=== PATIENT | female | born 1975 | race Caucasian/White ===

== ENCOUNTER 2017-09-03 04:40 | Inpatient (IN) | END 2017-09-03 21:15 | disposition left against medical advice (07) | DRG 392 ==

== ENCOUNTER 2018-11-19 02:14 | Inpatient (IN) | payer OTHER ==
[~2018-11-19] VITALS: Ht 162.6 cm; Wt 69.8 kg
[~2018-11-19 02:14] MED LIST: SERT50TA PO; TOPI25CA PO
[2018-11-19 03:31] VITALS: Ht 162.6 cm; Wt 69.8 kg
[2018-11-19 03:43] VITALS: BP 136/81; PULSE 50; RESP 20
[2018-11-19] MEDS ORDERED: ONDANSETRON 4 MG INJ IV PRN (04:30)
[2018-11-19] MEDS ORDERED: ACETAMINOPHEN 325 MG TAB PO PRN (04:30)
[2018-11-19] MEDS ORDERED: NACL 0.9% 3 ML SYG IV SCH (04:30)
[2018-11-19] MEDS ORDERED: HYDROCODONE/APAP (5/325) TAB PO PRN (04:30)
[2018-11-19] MEDS: SOD CHLORIDE 0.9% 1,000 ML IV SCH ×4 (05:09→19:53)
[2018-11-19] MEDS: morphine 2 MG INJ IV PRN ×4 (05:16→20:00)
--- NOTE | 2018-11-19 06:46 | HP ---
Date/Time of Note Date/Time of Note DATE: 11/19/18 TIME: 06:39 Assessment/Plan VTE Prophylaxis Pharmacological prophylaxis: heparin Lines/Catheters IV Catheter Type (from Nrs): Peripheral IV Assessment/Plan Assessment/Plan 43-year-old female with ureterolithiasis status post left-sided JJ stent placement about a month ago presents with bilateral flank pain and hematuria with an outside CT showing stable appearance of left-sided double J stent con taining a ureteral stone present at S1, stable however since the previous exam from 11/13/2018, there is significantly increased periureteral and perinephric stranding with neck, now with moderate hydronephrosis. Also stable appearance of the right 3 mm renal stone and likely a cyst. Postsurgical change within the small bowel loops, with focal ileus, stable. Patient was transferred here for insurance reason. PLAN -IV fluid -IV antibiotic -Flomax -Strain urine -Pain management -Urology consult -UA and urine culture Result Diagram: 11/19/18 0545 Results 24hrs Laboratory Tests Test 11/19/18 05:45 White Blood Count 7.5 # Red Blood Count 3.99 L Hemoglobin 12.2 Hematocrit 38.6 Mean Corpuscular Volume 96.7 Mean Corpuscular Hemoglobin 30.6 Mean Corpuscular Hemoglobin Concent 31.6 L Red Cell Distribution Width 13.1 Platelet Count 260 Mean Platelet Volume 9.8 Immature Granulocytes % 0.300 Neutrophils % 64.1 Lymphocytes % 24.7 Monocytes % 8.5 Eosinophils % 2.0 Basophils % 0.4 Nucleated Red Blood Cells % 0.0 Immature Granulocytes # 0.020 Neutrophils # 4.8 Lymphocytes # 1.9 Monocytes # 0.6 Eosinophils # 0.2 Basophils # 0.0 Nucleated Red Blood Cells # 0.0 HPI/ROS Admit Date/Time Admit Date/Time Nov 19, 2018 at 02:50 Hx of Present Illness Patient is a 43-year-old female who is a 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 She also reported dysuria and hematuria. She said a month ago she had a ureteral stent placed on the left side, but the stone was not removed. She said the stent is going to be removed at a later time when the infection resolves. She continues to have pain and also gross hematuria and as such she went to an outside hospital and then she was transferred here for insurance reason. CT at outside facility shows stable appearance of left-sided double J stent containing a ureteral stone present at S1, stable however since the previous exam from 11/13/2018, there is significantly increased periureteral and perinephric stranding with neck, now with moderate hydronephrosis. Also stable appearance of the right 3 mm renal stone and likely a cyst. Postsurgical change within the small bowel loops, with focal ileus, stable. UA consistent with UTI. No fever, WBC WNL and no renal insufficiency. She was transferred to [facility] for insurance reasons. Of note, patient was admitted here in 2018 for abdominal pain. At that time abdominal MRI showed mild right hydronephrosis and moderate right perinephric edema, may be due to an obstructing lesion such as a calculus or may also be due to pyelonephritis. She was also evaluated by GI for a mild CBD dilation, but no invasive procedure like ERCP was done. PMH/Family/Social Past Medical History Medical History: other (See HPI) Medications Current Medications Sodium Chloride 1,000 ml @ 125 mls/hr Q8H IV Last administered on 11/19/18at 05:09; Admin Dose 125 MLS/HR; Start 11/19/18 at 04:27 IV Flush (NS 3 ml) 3 ml PER PROTOCOL IV ; Start 11/19/18 at 04:30 Ondansetron HCl (Zofran Inj) 4 mg Q6H PRN IV NAUSEA/VOMITING; Start 11/19/18 at 04:30 Acetaminophen (Tylenol Tab) 650 mg Q6H PRN PO .PAIN 1-3 OR TEMP; Start 11/19/18 at 04:30 Acetaminophen/ Hydrocodone Bitart ([place] (5/325)) 1 tab Q6H PRN PO .MOD PAIN 4- 6; Start 11/19/18 at 04:30 Acetaminophen/ Hydrocodone Bitart ([place] (5/325)) 2 tab Q6H PRN PO .SEVERE PAIN 7-10; Start 11/19/18 at 04:30 Morphine Sulfate (morphine) 4 mg Q4H PRN IV .SEVERE PAIN 7-10 Last administered on 11/19/18at 05:16; Admin Dose 4 MG; Start 7/17/19 at 04:30 Coded Allergies: Penicillins (Verified Allergy, Mild, HIVES, 10/21/13) Past Surgical History Past Surgical Hx: other (See HPI) Family History Significant Family History: no pertinent family hx Social History Alcohol Use: none Smoking Status: Current some day smoker Drug Use: none Exam/Review of Systems Vital Signs Vitals Vital Signs Date Temp Pulse Resp B/P (MAP) Pulse Ox O2 O2 Flow FiO2 Time Delivery Rate 11/19/18 97.8 50 20 136/81 100 03:43 (99) Exam Constitutional: other (Sleepy, but arousable. Answering question appropriately. Able speak in full sentences) Head: normocephalic, atraumatic Eyes: PERRL Respiratory: clear to auscultation, normal air movement Cardiovascular: regular rate and rhythm Gastrointestinal: soft, tender Extremities: normal pulses CHARLES JOE MD Nov 19, 2018 06:46
[2018-11-19] MEDS ORDERED: TAMSULOSIN (SR) 0.4 MG CAP PO ONE (07:00)
[2018-11-19 07:49] VITALS: BP 112/59; PULSE 65; RESP 16
[2018-11-19] MEDS: CEFTRIAXONE 1 GM/50 ML (PMX) 50 ML IVPB SCH (07:50)
[2018-11-19] MEDS: HYDROCODONE/APAP (5/325) TAB PO PRN ×3 (07:58→22:42)
--- NOTE | 2018-11-19 12:13 | PN ---
Date/Time of Note Date/Time of Note DATE: 11/19/18 TIME: 12:08 Assessment/Plan VTE Prophylaxis Risk score (from Ns)>0 risk: 2 SCD applied (from Ns): Yes Pharmacological prophylaxis: NA/contraindicated Pharm contraindication: low risk/ambulating Lines/Catheters [facility] Type (from [facility]): Peripheral IV Assessment/Plan Hospital Course Assessment and plan 1. Urolithiasis status post left J stent placement. Patient did report that she had. There is a stent placed roughly a month ago. Imaging done at outside hospital did show left-sided JJ stent containing ureteral stone. Will get urologist consultation. Continue with analgesics. 2. UTI. Continue antibiotic regimen for now. Antipyretics as needed for fever. Follow-up on urine cultures. 3. Hematuria. Secondary to #1. Monitor H&H. Discussed POC with Dr. Castillo Result Diagram: 11/19/18 0545 11/19/18 0545 Results 24hrs Laboratory Tests Test 11/19/18 05:00 11/19/18 05:45 Urine Color YELLOW Urine Clarity CLOUDY A Urine pH 6.0 Urine Specific [place] 1.015 Urine Ketones NEGATIVE Urine Nitrite NEGATIVE Urine Bilirubin NEGATIVE Urine Urobilinogen NEGATIVE Urine Leukocyte Esterase 1+ H Urine Microscopic RBC > 182 H Urine Microscopic WBC 91 H Urine Squamous Epithelial Cells FEW Urine Bacteria FEW A Urine Mucus MODERATE Urine Hemoglobin 3+ H Urine Glucose NEGATIVE Urine Total Protein 2+ H White Blood Count 7.5 # Red Blood Count 3.99 L Hemoglobin 12.2 Hematocrit 38.6 Mean Corpuscular Volume 96.7 Mean Corpuscular Hemoglobin 30.6 Mean Corpuscular Hemoglobin Concent 31.6 L Red Cell Distribution Width 13.1 Platelet Count 260 Mean Platelet Volume 9.8 Immature Granulocytes % 0.300 Neutrophils % 64.1 Lymphocytes % 24.7 Monocytes % 8.5 Eosinophils % 2.0 Basophils % 0.4 Nucleated Red Blood Cells % 0.0 Immature Granulocytes # 0.020 Neutrophils # 4.8 Lymphocytes # 1.9 Monocytes # 0.6 Eosinophils # 0.2 Basophils # 0.0 Nucleated Red Blood Cells # 0.0 Sodium Level 143 Potassium Level 4.0 Chloride Level 106 Carbon Dioxide Level 31 Anion Gap 6 Blood Urea Nitrogen 15 Creatinine 0.71 Est Glomerular Filtrat Rate mL/min > 60 Glucose Level 105 Calcium Level 9.1 Phosphorus Level 3.1 Magnesium Level 1.7 Total Bilirubin 0.3 Direct Bilirubin 0.00 Indirect Bilirubin 0.3 Aspartate Amino Transf (AST/SGOT) 22 Alanine Aminotransferase (ALT/SGPT) 17 Alkaline Phosphatase 62 Total Protein 6.4 Albumin 3.6 Globulin 2.80 Albumin/Globulin Ratio 1.28 Subjective 24 Hr Interval Summary Free Text/Dictation patient still reports back pain. reports some hematuria Exam/Review of Systems Exam Vitals Vital Signs Date Temp Pulse Resp B/P (MAP) Pulse Ox O2 O2 Flow FiO2 Time Delivery Rate 11/19/18 97.5 65 16 112/59 96 07:49 (76) Constitutional: alert, oriented Head: normocephalic Neck: supple, non-tender Respiratory: clear to auscultation Cardiovascular: regular rate and rhythm, other (tender on back) Gastrointestinal: soft Musculoskeletal: nl extremities to inspection Neurological: nl mental status, nl speech Skin: nl turgor; No rash or lesions Results Results 24hrs Laboratory Tests Test 11/19/18 05:00 11/19/18 05:45 Urine Color YELLOW Urine Clarity CLOUDY A Urine pH 6.0 Urine Specific [place] 1.015 Urine Ketones NEGATIVE Urine Nitrite NEGATIVE Urine Bilirubin NEGATIVE Urine Urobilinogen NEGATIVE Urine Leukocyte Esterase 1+ H Urine Microscopic RBC > 182 H Urine Microscopic WBC 91 H Urine Squamous Epithelial Cells FEW Urine Bacteria FEW A Urine Mucus MODERATE Urine Hemoglobin 3+ H Urine Glucose NEGATIVE Urine Total Protein 2+ H White Blood Count 7.5 # Red Blood Count 3.99 L Hemoglobin 12.2 Hematocrit 38.6 Mean Corpuscular Volume 96.7 Mean Corpuscular Hemoglobin 30.6 Mean Corpuscular Hemoglobin Concent 31.6 L Red Cell Distribution Width 13.1 Platelet Count 260 Mean Platelet Volume 9.8 Immature Granulocytes % 0.300 Neutrophils % 64.1 Lymphocytes % 24.7 Monocytes % 8.5 Eosinophils % 2.0 Basophils % 0.4 Nucleated Red Blood Cells % 0.0 Immature Granulocytes # 0.020 Neutrophils # 4.8 Lymphocytes # 1.9 Monocytes # 0.6 Eosinophils # 0.2 Basophils # 0.0 Nucleated Red Blood Cells # 0.0 Sodium Level 143 Potassium Level 4.0 Chloride Level 106 Carbon Dioxide Level 31 Anion Gap 6 Blood Urea Nitrogen 15 Creatinine 0.71 Est Glomerular Filtrat Rate mL/min > 60 Glucose Level 105 Calcium Level 9.1 Phosphorus Level 3.1 Magnesium Level 1.7 Total Bilirubin 0.3 Direct Bilirubin 0.00 Indirect Bilirubin 0.3 Aspartate Amino Transf (AST/SGOT) 22 Alanine Aminotransferase (ALT/SGPT) 17 Alkaline Phosphatase 62 Total Protein 6.4 Albumin 3.6 Globulin 2.80 Albumin/Globulin Ratio 1.28 Medications Medication Current Medications Sodium Chloride 1,000 ml @ 125 mls/hr Q8H IV Last administered on 11/19/18at 05:09; Admin Dose 125 MLS/HR; Start 11/19/18 at 04:27 IV Flush (NS 3 ml) 3 ml PER PROTOCOL IV ; Start 11/19/18 at 04:30 Ondansetron HCl (Zofran Inj) 4 mg Q6H PRN IV NAUSEA/VOMITING; Start 11/19/18 at 04:30 Acetaminophen (Tylenol Tab) 650 mg Q6H PRN PO .PAIN 1-3 OR TEMP; Start 11/19/18 at 04:30 Acetaminophen/ Hydrocodone Bitart ([place] (5/325)) 1 tab Q6H PRN PO .MOD PAIN 4- 6; Start 11/19/18 at 04:30 Acetaminophen/ Hydrocodone Bitart ([place] (5/325)) 2 tab Q6H PRN PO .SEVERE PAIN 7-10 Last administered on 11/19/18at 07:58; Admin Dose 2 TAB; Start 11/19/18 at 04:30 Morphine Sulfate (morphine) 4 mg Q4H PRN IV .SEVERE PAIN 7-10 Last administered on 11/19/18at 10:35; Admin Dose 4 MG; Start 11/19/18 at 04:30 Ceftriaxone Sodium 50 ml @ 100 mls/hr Q24H IVPB Last administered on 11/19/18at 07:50; Admin Dose 100 MLS/HR; Start 11/19/18 at 07:00 MARY VANCE NP Nov 19, 2018 12:13
[2018-11-19 14:53] VITALS: BP 109/55; PULSE 82; RESP 16
--- NOTE | 2018-11-19 19:18 | CONS ---
Assessment/Plan Assessment/Plan Hospital Course (Demo Recall) 43-year-old female had left flank pain about 3 weeks earlier. She went to [facility]. She had a CT scan and that showed a stone in the left ureter. She had a a JJ stent put in and discharged home patient went again to [facility] and had another CT scan and that showed the stone still in the mid ureter over the sacral area. Patient was transferred to [facility] because of her insurance. Patient states that she has been treated for urinary tract infection. I looked at the CT scan and she does have a stone on the left side over the middle of the sacroiliac joint area. Impression: Left mid ureteral stone, status post insertion of left ureteral JJ stent about 3 weeks earlier. Plan: Cystoscopy,left ureteroscopy, laser lithotripsy, removal and replacement of left ureteral JJ stent. I did explain the procedure to her in detail Including the benefits risks and complications and these include and not limited to infection, bleeding, perforation of the ureter, failure to remove the stone in addition to the usual anesthetic risks. She understood and is agreeable to proceed Consultation Date/Type/Reason Admit Date/Time Nov 19, 2018 at 02:50 Date of Consultation: Nov 19, 2018 Type of Consult Urology Reason for Consultation Left mid ureteral stone Requesting Provider: CHARLES JOE MD Date/Time of Note DATE: 11/19/18 TIME: 19:04 Hx of Present Illness 43-year-old female had left flank pain about 3 weeks earlier. She went to [facility]. She had a CT scan and that showed a stone in the left ureter. She had a a JJ stent put in and discharged home patient went again to [facility] and had another CT scan and that showed the stone still in the mid ureter over the sacral area. Patient was transferred to [facility] because of her insurance. Patient states that she has been treated for urinary tract infection. Constitutional: no complaints Eyes: no complaints ENT: no complaints Respiratory: no complaints; No wheezing Cardiovascular: No chest pain Gastrointestinal: pain (Suprapubic); No nausea, No vomiting Genitourinary: flank pain (Left side), other (Patient has vaginal bleeding.) Musculoskeletal: no complaints Skin: no complaints Neurologic: no complaints Endocrine: no complaints Lymphatic: no complaints Past Medical History Medical History: no pertinent history, other (Depression) Home Meds Reported Medications Sertraline Hcl* (Zoloft*) 50 Mg Tablet, 50 MG PO DAILY 09/03/17 Topiramate* (Topamax*) 25 Mg Cap.sprink, 200 MG PO HS, CAP 09/03/17 Medications Current Medications Sodium Chloride 1,000 ml @ 125 mls/hr Q8H IV Last administered on 11/19/18at 13:39; Admin Dose 125 MLS/HR; Start 11/19/18 at 04:27 IV Flush (NS 3 ml) 3 ml PER PROTOCOL IV ; Start 11/19/18 at 04:30 Ondansetron HCl (Zofran Inj) 4 mg Q6H PRN IV NAUSEA/VOMITING; Start 11/19/18 at 04:30 Acetaminophen (Tylenol Tab) 650 mg Q6H PRN PO .PAIN 1-3 OR TEMP; Start 11/19/18 at 04:30 Acetaminophen/ Hydrocodone Bitart ([place] (5/325)) 1 tab Q6H PRN PO .MOD PAIN 4- 6; Start 11/19/18 at 04:30 Acetaminophen/ Hydrocodone Bitart ([place] (5/325)) 2 tab Q6H PRN PO .SEVERE PAIN 7-10 Last administered on 11/19/18at 16:25; Admin Dose 2 TAB; Start 11/19/18 at 04:30 Morphine Sulfate (morphine) 4 mg Q4H PRN IV .SEVERE PAIN 7-10 Last administered on 11/19/18at 14:48; Admin Dose 4 MG; Start 11/19/18 at 04:30 Ceftriaxone Sodium 50 ml @ 100 mls/hr Q24H IVPB Last administered on 11/19/18at 07:50; Admin Dose 100 MLS/HR; Start 11/19/18 at 07:00 Allergies: Coded Allergies: Penicillins (Verified Allergy, Mild, HIVES, 10/21/13) Past Surgical History Past Surgical Hx: appendectomy, other (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 At the same time she had an appendectomy and that was in 2009.) Social History Alcohol Use: none Smoking Status: Current some day smoker (She does smoke 3 to 5 cigarettes a day in addition to vaping) Drug Use: none Other Social History 5 para 3, 2 abortions and 3 normal deliveries Exam/Review of Systems Exam Vitals Vital Signs Date Temp Pulse Resp B/P (MAP) Pulse Ox O2 O2 Flow FiO2 Time Delivery Rate 11/19/18 98.2 82 16 109/55 93 14:53 (73) Constitutional: alert, oriented Psych: no complaints Head: normocephalic Eyes: nl conjunctiva ENMT: nl external ears & nose Neck: supple Respiratory: normal air movement; No wheezing Cardiovascular: No jugular venous distention (JVD) Gastrointestinal: soft Genitourinary - Female: CVA tenderness (Left side also tenderness in the suprapubic area. She does have heavy vaginal bleeding. She did have her menstrual periods a month ago and states that she has have vaginal bleeding since she had the JJ stent put in.) Musculoskeletal: nl extremities to inspection Extremities: No calf tenderness Neurological: nl mental status Skin: nl turgor, other (Tattoos on most of her body.) Results Result Diagram: 11/19/18 0545 11/19/18 0545 Results 24hrs Laboratory Tests Test 11/19/18 05:00 11/19/18 05:45 Urine Color YELLOW Urine Clarity CLOUDY A Urine pH 6.0 Urine Specific [place] 1.015 Urine Ketones NEGATIVE Urine Nitrite NEGATIVE Urine Bilirubin NEGATIVE Urine Urobilinogen NEGATIVE Urine Leukocyte Esterase 1+ H Urine Microscopic RBC > 182 H Urine Microscopic WBC 91 H Urine Squamous Epithelial Cells FEW Urine Bacteria FEW A Urine Mucus MODERATE Urine Hemoglobin 3+ H Urine Glucose NEGATIVE Urine Total Protein 2+ H White Blood Count 7.5 # Red Blood Count 3.99 L Hemoglobin 12.2 Hematocrit 38.6 Mean Corpuscular Volume 96.7 Mean Corpuscular Hemoglobin 30.6 Mean Corpuscular Hemoglobin Concent 31.6 L Red Cell Distribution Width 13.1 Platelet Count 260 Mean Platelet Volume 9.8 Immature Granulocytes % 0.300 Neutrophils % 64.1 Lymphocytes % 24.7 Monocytes % 8.5 Eosinophils % 2.0 Basophils % 0.4 Nucleated Red Blood Cells % 0.0 Immature Granulocytes # 0.020 Neutrophils # 4.8 Lymphocytes # 1.9 Monocytes # 0.6 Eosinophils # 0.2 Basophils # 0.0 Nucleated Red Blood Cells # 0.0 Sodium Level 143 Potassium Level 4.0 Chloride Level 106 Carbon Dioxide Level 31 Anion Gap 6 Blood Urea Nitrogen 15 Creatinine 0.71 Est Glomerular Filtrat Rate mL/min > 60 Glucose Level 105 Calcium Level 9.1 Phosphorus Level 3.1 Magnesium Level 1.7 Total Bilirubin 0.3 Direct Bilirubin 0.00 Indirect Bilirubin 0.3 Aspartate Amino Transf (AST/SGOT) 22 Alanine Aminotransferase (ALT/SGPT) 17 Alkaline Phosphatase 62 Total Protein 6.4 Albumin 3.6 Globulin 2.80 Albumin/Globulin Ratio 1.28 Medications Medication Current Medications Sodium Chloride 1,000 ml @ 125 mls/hr Q8H IV Last administered on 11/19/18at 13:39; Admin Dose 125 MLS/HR; Start 11/19/18 at 04:27 IV Flush (NS 3 ml) 3 ml PER PROTOCOL IV ; Start 11/19/18 at 04:30 Ondansetron HCl (Zofran Inj) 4 mg Q6H PRN IV NAUSEA/VOMITING; Start 11/19/18 at 04:30 Acetaminophen (Tylenol Tab) 650 mg Q6H PRN PO .PAIN 1-3 OR TEMP; Start 11/19/18 at 04:30 Acetaminophen/ Hydrocodone Bitart ([place] (5/325)) 1 tab Q6H PRN PO .MOD PAIN 4- 6; Start 11/19/18 at 04:30 Acetaminophen/ Hydrocodone Bitart ([place] (5/325)) 2 tab Q6H PRN PO .SEVERE PAIN 7-10 Last administered on 11/19/18at 16:25; Admin Dose 2 TAB; Start 11/19/18 at 04:30 Morphine Sulfate (morphine) 4 mg Q4H PRN IV .SEVERE PAIN 7-10 Last administered on 11/19/18at 14:48; Admin Dose 4 MG; Start 11/19/18 at 04:30 Ceftriaxone Sodium 50 ml @ 100 mls/hr Q24H IVPB Last administered on 11/19/18 07:50; Admin Dose 100 MLS/HR; Start 11/19/18 at 07:00 MARLEY VIEYRA MD Nov 19, 2018 19:18
[2018-11-19 20:18] VITALS: BP 114/58; PULSE 66; RESP 18
[2018-11-19] MEDS ORDERED: KETOROLAC 30 MG INJ IV ONE (22:39)
[2018-11-20] VITALS (10 sets, daily range): BP systolic 119–147; BP diastolic 57–85; PULSE 60–90; RESP 13–18
[2018-11-20] MEDS: morphine 2 MG INJ IV PRN ×4 (00:02→15:23)
[2018-11-20] MEDS: SOD CHLORIDE 0.9% 1,000 ML IV SCH ×2 (04:46→15:31)
[2018-11-20] MEDS: CEFTRIAXONE 1 GM/50 ML (PMX) 50 ML IVPB SCH (05:55)
[2018-11-20] MEDS ORDERED: MAGNESIUM SULFATE 2 GM/50 ML 50 ML IVPB ONE (11:00)
--- NOTE | 2018-11-20 13:35 | PN ---
Date/Time of Note Date/Time of Note DATE: 11/20/18 TIME: 13:32 Assessment/Plan VTE Prophylaxis Risk score (from Ns)>0 risk: 1 SCD applied (from Ns): Yes Pharmacological prophylaxis: NA/contraindicated Pharm contraindication: low risk/ambulating Lines/Catheters IV [facility]from [facility]): Peripheral IV Assessment/Plan Hospital Course Assessment and plan 1. Urolithiasis status post left J stent placement. Patient did report that she had. There is a stent placed roughly a month ago. Imaging done at outside hospital did show left-sided JJ stent containing ureteral stone. Urologist following. Tentative plan for cystoscopy. 2. UTI. Continue antibiotic regimen for now. Antipyretics as needed for fever. Follow-up on final urine cultures. 3. Hematuria. Secondary to #1. Monitor H&H. Disposition and plan. Continue with analgesics. Tentative plan for cystoscopy. Follow-up on final urine cultures. Discussed POC with Dr. Castillo Result Diagram: 11/20/18 0549 11/20/18 0549 Results 24hrs Laboratory Tests Test 11/19/18 20:00 11/19/18 20:37 11/19/18 22:00 11/20/18 05:49 Urine Color YELLOW Urine Clarity SLIGHTLY CLOUDY A Urine pH 6.0 Urine Specific 1.010 [place] Urine Ketones NEGATIVE Urine Nitrite NEGATIVE Urine Bilirubin NEGATIVE Urine NEGATIVE Urobilinogen Urine Leukocyte 1+ H Esterase Urine Microscopic > 182 H RBC Urine Microscopic 63 H WBC Urine Bacteria FEW A Urine Hemoglobin 3+ H Urine Glucose NEGATIVE Urine Total 1+ H Protein Prothrombin Time 12.3 Prothrombin Time 1.0 Ratio INR International 0.90 Normalized Ratio Activated 30.6 Partial Thrombopl ast Time Urine NEGATIVE Test White Blood Count 7.1 Red Blood Count 3.48 L Hemoglobin 11.0 L Hematocrit 33.2 L Mean Corpuscular 95.4 Volume Mean Corpuscular 31.6 Hemoglobin Mean Corpuscular 33.1 Hemoglobin Concen t Red Cell 13.1 Distribution Width Platelet Count 244 Mean Platelet 9.5 Volume Immature 0.300 Granulocytes % Neutrophils % 58.3 Lymphocytes % 30.0 Monocytes % 8.3 Eosinophils % 2.5 Basophils % 0.6 Nucleated Red 0.0 Blood Cells % Immature 0.020 Granulocytes # Neutrophils # 4.1 Lymphocytes # 2.1 Monocytes # 0.6 Eosinophils # 0.2 Basophils # 0.0 Nucleated Red 0.0 Blood Cells # Sodium Level 143 Potassium Level 3.9 Chloride Level 110 Carbon Dioxide 29 Level Anion Gap 4 L Blood Urea 13 Nitrogen Creatinine 0.61 Est Glomerular > 60 Filtrat Rate mL/min Glucose Level 95 Calcium Level 8.6 Phosphorus Level 3.2 Magnesium Level 1.6 L Subjective 24 Hr Interval Summary Free Text/Dictation still reports bilateral back flank pain Exam/Review of Systems Exam Vitals Vital Signs Date Temp Pulse Resp B/P (MAP) Pulse Ox O2 O2 Flow FiO2 Time Delivery Rate 11/20/18 97.8 64 16 121/57 96 08:00 (78) Intake and Output 11/19/18 11/19/18 11/20/18 1515:00 23:00 07:00 IntakeIntake Total 1590 ml 1700 ml 1030 ml OutputOutput Total 1500 ml BalanceBalance 1590 ml 1700 ml -470 ml Exam Constitutional: alert, oriented Head: normocephalic Neck: supple, non-tender Respiratory: clear to auscultation Cardiovascular: regular rate and rhythm, other (tender on back) Gastrointestinal: soft Musculoskeletal: nl extremities to inspection Neurological: nl mental status, nl speech Skin: nl turgor; No rash or lesions Results Results 24hrs Laboratory Tests Test 11/19/18 20:00 11/19/18 20:37 11/19/18 22:00 11/20/18 05:49 Urine Color YELLOW Urine Clarity SLIGHTLY CLOUDY A Urine pH 6.0 Urine Specific 1.010 [place] Urine Ketones NEGATIVE Urine Nitrite NEGATIVE Urine Bilirubin NEGATIVE Urine NEGATIVE Urobilinogen Urine Leukocyte 1+ H Esterase Urine Microscopic > 182 H RBC Urine Microscopic 63 H WBC Urine Bacteria FEW A Urine Hemoglobin 3+ H Urine Glucose NEGATIVE Urine Total 1+ H Protein Prothrombin Time 12.3 Prothrombin Time 1.0 Ratio INR International 0.90 Normalized Ratio Activated 30.6 Partial Thrombopl ast Time Urine NEGATIVE Test White Blood Count 7.1 Red Blood Count 3.48 L Hemoglobin 11.0 L Hematocrit 33.2 L Mean Corpuscular 95.4 Volume Mean Corpuscular 31.6 Hemoglobin Mean Corpuscular 33.1 Hemoglobin Concen t Red Cell 13.1 Distribution Width Platelet Count 244 Mean Platelet 9.5 Volume Immature 0.300 Granulocytes % Neutrophils % 58.3 Lymphocytes % 30.0 Monocytes % 8.3 Eosinophils % 2.5 Basophils % 0.6 Nucleated Red 0.0 Blood Cells % Immature 0.020 Granulocytes # Neutrophils # 4.1 Lymphocytes # 2.1 Monocytes # 0.6 Eosinophils # 0.2 Basophils # 0.0 Nucleated Red 0.0 Blood Cells # Sodium Level 143 Potassium Level 3.9 Chloride Level 110 Carbon Dioxide 29 Level Anion Gap 4 L Blood Urea 13 Nitrogen Creatinine 0.61 Est Glomerular > 60 Filtrat Rate mL/min Glucose Level 95 Calcium Level 8.6 Phosphorus Level 3.2 Magnesium Level 1.6 L Medications Medication Current Medications Sodium Chloride 1,000 ml @ 125 mls/hr Q8H IV Last administered on 11/20/18 04:46; Admin Dose 125 MLS/HR; Start 11/19/18 at 04:27 IV Flush (NS 3 ml) 3 ml PER PROTOCOL IV ; Start 11/19/18 at 04:30 Ondansetron HCl (Zofran Inj) 4 mg Q6H PRN IV NAUSEA/VOMITING; Start 11/19/18 at 04:30 Acetaminophen (Tylenol Tab) 650 mg Q6H PRN PO .PAIN 1-3 OR TEMP; Start 11/19/18 at 04:30 Acetaminophen/ Hydrocodone Bitart ([place] (5/325)) 1 tab Q6H PRN PO .MOD PAIN 4- 6; Start 11/19/18 at 04:30 Acetaminophen/ Hydrocodone Bitart ([place] (5/325)) 2 tab Q6H PRN PO .SEVERE PAIN 7-10 Last administered on 11/19/18at 22:42; Admin Dose 2 TAB; Start 11/19/18 at 04:30 Morphine Sulfate (morphine) 4 mg Q4H PRN IV .SEVERE PAIN 7-10 Last administered on 11/20/18at 10:40; Admin Dose 4 MG; Start 11/19/18 at 04:30 Ceftriaxone Sodium 50 ml @ 100 mls/hr Q24H IVPB Last administered on 11/20/18at 05:55; Admin Dose 100 MLS/HR; Start 11/19/18 at 07:00 MARY VANCE NP Nov 20, 2018 13:35
[2018-11-20] MEDS ORDERED: KETOROLAC 30 MG INJ IV PRN (14:00)
[2018-11-20] MEDS ORDERED: IOHEXOL 300MG/ML 30 ML BTL ONE (17:24)
--- NOTE | 2018-11-20 17:36 | PREAC ---
Date/Time of Note Date/Time of Note DATE: 11/20/18 TIME: 17:34 Anesthesia Eval and Record Evaluation Time Pre-Procedure Interview DATE: 11/20/18 TIME: 17:34 Age 43 Sex female NPO: 8 hrs Preoperative diagnosis Left Ureter Stone and Obstructive Uropathy Planned procedure Cystoscopy and Removal and Replacement of JJ stent and Laser Lithotripsy Past Medical History Past Medical History: Includes Renal: Other (Kidney Stone) Heme: Anemia Surgery & Anesthesia Issues No known issue Meds Anticoagulation: No Beta Juanita within 24 hr: No Reason Beta Juanita not given: Pt. not on B-Juanita Reported Medications Sertraline Hcl* (Zoloft*) 50 Mg Tablet, 50 MG PO DAILY 09/03/17 Topiramate* (Topamax*) 25 Mg Cap.sprink, 200 MG PO HS, CAP 09/03/17 Current Medications Sodium Chloride 1,000 ml @ 125 mls/hr Q8H IV Last administered on 11/20/18at 15:31; Admin Dose 125 MLS/HR; Start 11/19/18 at 04:27 IV Flush (NS 3 ml) 3 ml PER PROTOCOL IV ; Start 11/19/18 at 04:30 Ondansetron HCl (Zofran Inj) 4 mg Q6H PRN IV NAUSEA/VOMITING; Start 11/19/18 at 04:30 Acetaminophen (Tylenol Tab) 650 mg Q6H PRN PO .PAIN 1-3 OR TEMP; Start 11/19/18 at 04:30 Acetaminophen/ Hydrocodone Bitart ([place] (5/325)) 1 tab Q6H PRN PO .MOD PAIN 4- 6; Start 11/19/18 at 04:30 Acetaminophen/ Hydrocodone Bitart ([place] (5/325)) 2 tab Q6H PRN PO .SEVERE PAIN 7-10 Last administered on 11/19/18at 22:42; Admin Dose 2 TAB; Start 11/19/18 at 04:30 Morphine Sulfate (morphine) 4 mg Q4H PRN IV .SEVERE PAIN 7-10 Last administered on 11/20/18at 15:23; Admin Dose 4 MG; Start 11/19/18 at 04:30 Ceftriaxone Sodium 50 ml @ 100 mls/hr Q24H IVPB Last administered on 11/20/18at 05:55; Admin Dose 100 MLS/HR; Start 11/19/18 at 07:00 Ketorolac Tromethamine (Toradol) 30 mg Q6H PRN IV PAIN LEVEL 1-3 Last administered on 11/20/18at 14:14; Admin Dose 30 MG; Start 11/20/18 at 14:00; Stop 11/23/18 at 13:59 Meds reviewed: Yes Allergies Coded Allergies: Penicillins (Verified Allergy, Mild, HIVES, 10/21/13) Allergies Reviewed: Yes Labs/Studies Labs Reviewed: Reviewed by anesthesiologist Result Diagram: 11/20/18 0549 11/20/18 0549 Laboratory Tests 11/20/18 05:49 test: Negative Pre-procedure Exam Last vitals Vital Signs Date Temp Pulse Resp B/P (MAP) Pulse Ox O2 O2 Flow FiO2 Time Delivery Rate 11/20/18 99.1 67 16 144/67 96 14:30 (92) Airway: Adequate mouth opening, Adequate thyromental dist Mallampati: Mallampati II Teeth: Normal Lung: Normal Heart: Normal ASA Physical Status ASA physical status: 2 Emergency: None Planned Anesthetic General/MAC: LMA Planned Pain Management Parenteral pain med Pre-operative Attestations Prior to commencing anesthesia and surgery, the patient was re-evaluated, there was verification of: *The patient's identity *The results of appropriate recent lab work and preoperative vital signs *The above evaluation not changing prior to induction *Anesthetic plan, risk benefits, alternative and complications discussed with patient/family; questions answered; patient/family understands, accepts and wishes to proceed. ISRAEL STAHL MD Nov 20, 2018 17:36
[2018-11-20] MEDS ORDERED: SEVOFLURANE 15 MIN ONE (18:00)
[2018-11-20] MEDS ORDERED: PROPOFOL 200 MG INJ ONE (18:00)
[2018-11-20] MEDS ORDERED: CIPRO 400 MG/200 ML D5W IVPB ONE (18:00)
--- NOTE | 2018-11-20 18:03 | HPN ---
Date/Time of Note Date/Time of Note DATE: 11/20/18 TIME: 18:03 Interval H&P Admission Note Pt. seen H&P reviewed: No system changes MARLEY VIEYRA MD Nov 20, 2018 18:03
[2018-11-20] MEDS ORDERED: CEFAZOLIN 1 GM INJ ONE (18:09)
[2018-11-20] MEDS ORDERED: ROCURONIUM 50 MG INJ ONE (18:09)
[2018-11-20] MEDS ORDERED: FENTAnyl 50 MCG/ML VIAL ONE (18:09)
[2018-11-20] MEDS ORDERED: PROPOFOL 20 ML ONE (18:09)
[2018-11-20] MEDS ORDERED: MIDAZOLAM 1 MG/ML 2 ML INJ ONE (18:09)
[2018-11-20] MEDS ORDERED: CIPROFLOXACIN 400MG/D5W 200 ML IVPB ONE (18:30)
[2018-11-20] MEDS ORDERED: KETOROLAC 30 MG INJ ONE (18:36)
[2018-11-20] MEDS ORDERED: EPHEDrine 25 MG/5 ML SYG ONE (18:36)
[2018-11-20] MEDS ORDERED: DEXAMETHASONE 4 MG/ML 5 ML INJ ONE (18:36)
[2018-11-20] MEDS ORDERED: METOCLOPRAMIDE 10 MG INJ ONE (18:36)
[2018-11-20] MEDS ORDERED: ONDANSETRON 4 MG INJ ONE (18:36)
[2018-11-20] MEDS ORDERED: PHENYLephrine (100 MCG/ML) 10ML SYG ONE (19:15)
[2018-11-20] MEDS ORDERED: MEPERIDINE 25 MG INJ IV PRN (19:30)
[2018-11-20] MEDS ORDERED: ONDANSETRON 4 MG INJ IV PRN (19:30)
[2018-11-20] MEDS ORDERED: FENTAnyl 50 MCG/ML VIAL IV PRN ×3 (19:30)
[2018-11-20] MEDS ORDERED: EPHEDrine 25 MG/5 ML SYG IV PRN (19:30)
[2018-11-20] MEDS ORDERED: DIPHENHYDRAMINE 50 MG INJ IV PRN (19:30)
[2018-11-20] MEDS ORDERED: HYDROmorphONE 1 MG/5 ML IV SYRINGE IV PRN ×3 (19:30)
[2018-11-20] MEDS ORDERED: OXYCODONE/ACETAMINOPHEN (5/325) TAB PO PRN (19:30)
[2018-11-20] MEDS ORDERED: LABETALOL HCL 20MG INJ IV PRN (19:30)
[2018-11-20] MEDS ORDERED: METOCLOPRAMIDE 10 MG INJ IV PRN (19:30)
--- NOTE | 2018-11-20 19:33 | PAC ---
Date/Time of Note Date/Time of Note DATE: 11/20/18 TIME: 19:33 Post-Anesthesia Notes Post-Anesthesia Note Last documented vital signs Vital Signs Date Temp Pulse Resp B/P (MAP) Pulse Ox O2 O2 Flow FiO2 Time Delivery Rate 11/20/18 98.3 19:30 11/20/18 67 16 144/67 96 14:30 (92) Activity: WNL Respiratory function: WNL Cardiovascular function: WNL Mental status: Baseline Pain reasonably controlled: Yes Hydration appropriate: Yes Nausea/Vomiting absent: Yes ISRAEL STAHL MD Nov 20, 2018 19:33
--- NOTE | 2018-11-20 19:42 | OPR ---
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 Time out was done the patient was identified by her name, birthdate, the procedure and the side of the procedure. The patient was given 400 mg of Cipro IV at the start of the procedure. The patient was then positioned in the lithotomy position and the genital area was prepped and draped in the usual sterile manner. #21 Turkish cystoscope sheath was introduced into the bladder, urine was collected for culture and sensitivity. The distal end of the left ureteral JJ stent was then grasped and pulled out to the urethral meatus. The distal curl of the stent was then cut and then I introduced a 0.035 zip wire into the lumen and advanced it under fluoroscopy all the way up to the kidney. The old JJ stent was then rem juliana. A dual lumen catheter was then advanced on the wire and through the second lumen of the catheter another zip wire was passed to the kidney. The ureteroscope introduced into the bladder and then it was advanced into the ureter to the level of the stone, the stone was visualized, then the 265 m laser fiber was used and the holmium laser was used to break the stone into multiple pieces. these pieces were then basketed one at a time and dropped into the bladder, one piece was large that it needed further breaking by the laser and once that was done the remaining stone fragments were removed and the ureter was cleared completely from the stone fragments. Then I did the cystoscopy and drained all the stone fragments out of the bladder. Then I reintroduced the cystoscope on the safety wire and inserted a 6 Turkish by 22 cm long JJ stent in the left ureter under fluoroscopy, had its proximal end curling into the kidney and the distal end curling into the bladder. The distal end is attached to a string that was brought out through the urethra and taped with 2 pieces of Tegaderm to her right groin. The patient tolerated the procedure well and was transferred to recovery room in stable and satisfactory condition MARLEY VIEYRA MD Nov 20, 2018 19:42
[2018-11-20] MEDS ORDERED: HYDROmorphONE 1 MG/ML SYG IV PRN (21:30)
[2018-11-20] MEDS ORDERED: SOD CHLORIDE 0.9% 1,000 ML IV SCH (23:00)
[2018-11-20] MEDS: HYDROmorphONE 2 MG/ML SYG IV PRN (23:12)
[2018-11-21] MEDS: IBUPROFEN 600 MG TAB PO SCH ×2 (00:43→05:57)
[2018-11-21 02:01] VITALS: BP 104/56; PULSE 100; RESP 18
[2018-11-21] MEDS: HYDROmorphONE 2 MG/ML SYG IV PRN ×3 (03:12→08:56)
[2018-11-21] MEDS: SOD CHLORIDE 0.9% 1,000 ML IV SCH (04:10)
[2018-11-21] MEDS: CEFTRIAXONE 1 GM/50 ML (PMX) 50 ML IVPB SCH (05:58)
[2018-11-21 07:20] VITALS: BP 118/80; PULSE 71; RESP 16
--- NOTE | 2018-11-21 08:20 | CONS ---
Consult Date/Type/Reason Admit Date/Time Nov 19, 2018 at 02:50 Initial Consult Date 11/19/18 Type of Consultation: Urology Reason for Consultation Left ureteral stone Requesting Provider: CHARLES JOE MD Date/Time of Note DATE: 11/21/18 TIME: 08:18 Subjective Patient is feeling better. Her pain is much less Objective Vitals Vital Signs Date Temp Pulse Resp B/P (MAP) Pulse Ox O2 O2 Flow FiO2 Time Delivery Rate 11/21/18 98.1 71 16 118/80 94 Room Air 07:20 (93) Intake and Output 11/20/18 11/20/18 11/21/18 1515:00 23:00 07:00 IntakeIntake Total 50 ml 1620 ml 930 ml BalanceBalance 50 ml 1620 ml 930 ml Exam Abdomen is soft. There is no flank tenderness Results/Medications Result Diagram: 11/20/18 0549 11/20/1849 Results 24 hrs Laboratory Tests Test 11/21/18 05:54 Magnesium Level 1.9 Home Meds Reported Medications Sertraline Hcl* (Zoloft*) 50 Mg Tablet, 50 MG PO DAILY 09/03/17 Topiramate* (Topamax*) 25 Mg Cap.sprink, 200 MG PO HS, CAP 09/03/17 Medications Current Medications Sodium Chloride 1,000 ml @ 125 mls/hr Q8H IV Last administered on 11/20/18at 15:31; Admin Dose 125 MLS/HR; Start 11/19/18 at 04:27 IV Flush (NS 3 ml) 3 ml PER PROTOCOL IV ; Start 11/19/18 at 04:30 Ondansetron HCl (Zofran Inj) 4 mg Q6H PRN IV NAUSEA/VOMITING; Start 11/19/18 at 04:30 Ceftriaxone Sodium 50 ml @ 100 mls/hr Q24H IVPB Last administered on 11/21/18at 05:58; Admin Dose 100 MLS/HR; Start 11/19/18 at 07:00 Ibuprofen (Motrin) 600 mg Q6 PO Last administered on 11/21/18at 05:57; Admin Dose 600 MG; Start 11/21/18 at 00:00 Hydromorphone HCl (Dilaudid) 2 mg Q3H PRN IV SEVERE PAIN LEVEL 7-10 Last administered on 11/21/18at 05:59; Admin Dose 2 MG; Start 11/20/18 at 23:08 Assessment/Plan Hospital Course (Demo Recall) 43-year-old female had left flank pain about 3 weeks earlier. She went to [facility]. She had a CT scan and that showed a stone in the left ureter. She had a a JJ stent put in and discharged home patient went again to [facility] and had another CT scan and that showed the stone still in the mid ureter over the sacral area. Patient was transferred to [facility] because of her insurance. Patient states that she has been treated for urinary tract infection. I looked at the CT scan and she does have a stone on the left side over the middle of the sacroiliac joint area. Patient is status post cystoscopy, left ureteroscopy, laser lithotripsy removal and replacement of left ureteral JJ stent. The patient is doing well. She is stable and she may be discharged home today on oral antibiotic and pain medications. She should come to my office next Saturday or Saturday to remove the JJ stent. MARLEY VIEYRA MD Nov 21, 2018 08:20
[2018-11-21] MEDS ORDERED: CIPR500T4 PO (09:39)
[2018-11-21] MEDS ORDERED: HYDR-4011 PO (09:39)
--- NOTE | 2018-11-21 09:43 | PDOCDIS ---
Discharge Instructions CONDITION [id number] Patient Condition: [id number] Stable HOME CARE INSTRUCTIONS: [id number] Diet Instructions: [id number] Low Fat /Cholesterol FOLLOW UP/APPOINTMENTS Follow-up Plan 1. Follow up with Dr. Nicolas Gonsales on November 25, 2018 Call and make appointment. Office Address [id number] [address] Office MARY VANCE NP Nov 21, 2018 09:43
--- NOTE | 2018-11-21 21:25 | DS ---
Date/Time of Note Date/Time of Note DATE: 11/21/18 TIME: 21:22 Discharge Summary Admission/Discharge Info Admit Date/Time Nov 19, 2018 at 02:50 Discharge Date/Time Nov 21, 2018 at 11:45 Patient Condition: Stable Hospital Course This is a 43-year-old female with recent history of ureterolithiasis status post left sided JJ stent placed roughly a month ago. Patient presented to the hospital with reports of bilateral flank pain and hematuria. She was seen at outside hospital with CT scan of her abdomen showing left-sided JJ stent with a ureteral stone at S1. There is also significantly increased periureteral and perinephric stranding. There was suspicion of UTI. She was noted with moderate hydronephrosis. Due to insurance issues she was brought to [facility]. She was seen again by urologist. She did undergo cystoscopy with left ureteroscopy laser lithotripsy and removal and replacement of the left ureteral JJ stent. She was optimized on IV fluids and analgesics. Urinalysis did have positive leukocyte esterase test suspect for UTI she was placed on antibiotic regimen. Hematuria did resolve. She was advised for outpatient follow-up with urologist within a week. During her course of stay she did improve. The plan of care was discussed with the patient and she verbalized understanding. On the day of discharge patient was in stable condition Discussed POC with Dr. Castillo [place] Meds Active Scripts Hydrocodone/Acetaminophen ([place] 5-325 Tablet) 1 Each Tablet, 1 EACH PO Q6 PRN for PAIN, #25 TAB Prov:MARY VANCE FRONT OFFICE CLERK 11/21/18 Ciprofloxacin Hcl* (Ciprofloxacin Hcl*) 500 Mg Tablet, 500 MG PO BID, #9 TAB Prov:MARY VANCE FRONT OFFICE CLERK 11/21/18 Reported Medications Sertraline Hcl* (Zoloft*) 50 Mg Tablet, 50 MG PO DAILY 09/03/17 Topiramate* (Topamax*) 25 Mg Cap.sprink, 200 MG PO HS, CAP 09/03/17 Follow-up Plan 1. Follow up with Dr. Nicolas Gonsales on November 25, 2018 Call and make appointment. Office Address [id number] [address] Office Primary Care Provider Not On Staff Doctor Time spent on discharge: > 30 minutes Pending Labs Laboratory Tests Test 11/21/18 05:54 Magnesium Level 1.9 mg/dl (1.7-2.5) MARY VANCE NP Nov 21, 2018 21:25
--- NOTE | 2018-11-22 16:08 | RADRPT ---
Vent Rate: 55 bpm RR Interval: 1080 msec MA Interval: 184 msec QRS Duration: 87 msec QT Interval: 409 msec QTC Interval: 394 msec P-R-T [place]: 63 - 46 - 56 degrees Sinus rhythm...normal P axis, V-rate 50- 99 Atrial premature complex...SV complex w/ short R-R interval Electronically Signed By: Joshua Shook
== END 2018-11-21 11:45 | disposition home or self-care (01) | DRG 661 ==
LOC: PP2 02:50
PROVIDERS: ADMIT Internal Medicine; ATTEND Internal Medicine
PROC: 0T778DZ Dilation of Left Ureter with Intraluminal Device, Via Natural or Artificial Opening Endoscopic (ICD-10-PCS; 2018-11-20)
PROC: 0TP98DZ Removal of Intraluminal Device from Ureter, Via Natural or Artificial Opening Endoscopic (ICD-10-PCS; 2018-11-20)
PROC: 0TC78ZZ Extirpation of Matter from Left Ureter, Via Natural or Artificial Opening Endoscopic (ICD-10-PCS; principal; 2018-11-20 17:30)
DX: N13.6 Pyonephrosis (principal); R31.9 Hematuria, unspecified; Z72.0 Tobacco use
CPT/HCPCS: 71045; 74018; 74430; 80048; 80053; 81001; 83735; 84100; 84703; 85025; 85610; 85730; 87081; 87086; 88300; 93005; A4310; C2617; J0690; J0696; J0744; J1100; J1170; J1885; J2250; J2270; J2370; J2405; J2765; J3010; J3475; J7030; Q9967